=== PATIENT | male | born 1935 | race Caucasian/White ===

== ENCOUNTER → 2016-03-14 | Outpatient (CLI) | payer OTHER, BC ==
[~2016-03-14] MED LIST: ACETAMINOPHEN500 M1 PO; ALDACTONE25 MG PO; ALDACTONE50 MG PO; AMBIEN5 MG PO; ANTI-DIARRHEA2 MG PO; ASPIR 8181 M1 PO; Aldactone PO; BYSTOLIC5 MG PO; CLEOCIN300 MG PO; COUMADIN,JANTOVE2 MG PO; COUMADIN,JANTOVE5 MG PO; COUMADIN2 MG PO; COUMADIN5 MG PO; COUMADIN6 MG PO; DICYCLOMINE HCL20 MG PO; DIGOX125 MCG PO; DIOVAN80 MG PO; FEROSUL325 MG PO; FERROUS SULFAT324 M1 PO; FERROUS SULFAT325 MG PO; FINASTERIDE5 MG PO; FLOMAX0.4 MG PO; FUROSEMIDE20 MG PO; IMODIUM A-D2 MG PO; KLONOPIN0.5 M1 PO; KLONOPIN1 MG PO; KlonoPIN PO; Klonopin PO; LANOXIN,DIGI0.125 MG PO; LASIX10 MG PO; LASIX20 MG PO; LASIX40 MG PO; LISINOPRIL2.5 MG PO; LISINOPRIL5 MG PO; LOPRESSOR100 MG PO; Lasix PO; Lopressor PO; METOPROLOL TART50 MG PO; OMEPRAZOLE20 M1 PO; OMEPRAZOLE40 MG PO; PACERONE200 M1 PO; PERCOCET 5/31 TABLET PO; PRILOSEC40 MG PO; PROBIOTIC PO; PROBIOTIC1 EAC5 PO; PROSCAR5 MG PO; SPIRONOLACTONE25 MG PO; TAMSULOSIN HCL0.4 MG PO; TYLENOL EXTRA500 MG PO; TYLENOL325 M1 PO; Tylenol Extra Streng PO; VESICARE10 MG PO; VICODIN 5-3001 EACH PO; Vancocin Oral Solution PO; Vitamin D, Drisdol PO; WARFARIN SODIUM1 MG PO; WARFARIN SODIUM2 MG PO; WARFARIN SODIUM5 MG PO; WARFARIN SODIUM6 MG PO; ZENPEP PO; ZESTRIL2.5 MG PO; ZETIA10 MG PO; ZOFRAN ODT4 MG PO; Zofran PO; [UNRECOGNIZED DRUG - OTHER] PO
== END | disposition home or self-care (01) ==
LOC: RAD 13:05 → EDSTATUS 13:15
PROC: 0W9G3ZZ Drainage of Peritoneal Cavity, Percutaneous Approach (ICD-10-PCS; principal; 2016-03-14)
DX: R18.8 Other ascites (principal)